=== PATIENT | male | born 1985 | race Caucasian/White ===

== ENCOUNTER 2017-01-27 19:15 | Emergency (ER) | payer OTHER ==
[~2017-01-27] VITALS: Ht 167.6 cm; Wt 68.5 kg
[2017-01-27 19:58] LABS: HEMATOCRIT 42.8 % (38.0-50.0); MCH 30.5 PG (29.0-34.0); MCHC 34.8 G/DL (30.0-36.0); MCV 87.7 FL (86-99); MEAN PLAT.VOLUME 11.3 uM^3 (9.0-12.4); PLATELET COUNT 257 K/uL (156-360); RBC DIS.WIDTH-CV 13.6 % (11.8-14.6); RED BLOOD COUNT 4.88 M/uL (4.00-5.50); WHITE BLOOD COUNT 9.2 K/uL (4.1-10.2)
[2017-01-27 20:11] LABS: ADD MIUA? NO; BILIRUBIN NEGATIVE; BLOOD NEGATIVE; COLOR YELLOW ((YELLOW)); GLUCOSE (STRIP) NEGATIVE; KETONES NEGATIVE; LEUKOCYTES NEGATIVE; NITRITE NEGATIVE; PROTEIN (STRIP) NEGATIVE; SPECIFIC GRAVITY 1.021 (1.000-1.030); UROBILINOGEN 0.2 MG/DL (0.2-1.0)
[2017-01-27 20:16] LABS: CHLORIDE 105 mEq/L (99-109); POTASSIUM 3.9 mEq/L (3.7-5.4); SODIUM 143 mEq/L (136-147)
[2017-01-27 20:18] LABS: GLUCOSE 101 mg/dL (70-99); TROP-I INTERPRETATION NEGATIVE; TROPONIN-I < 0.01 ng/mL (0.0-0.30)
[2017-01-27 20:19] LABS: ANION GAP 11 MEQ/L (2-14)
[2017-01-27 20:20] LABS: TOTAL BILIRUBIN 0.8 mg/dL (0.0-1.0)
[2017-01-27 20:21] LABS: ALKALINE PHOSPHATASE 59 IU/L (3-129)
[2017-01-27 20:22] LABS: GFR ESTIMATE (CALCULATED) > 59 mL/min/
[2017-01-27 20:23] LABS: UREA NITROGEN (BUN) 16 mg/dL (9-23)
[2017-01-27 21:05] LABS: ADD MEDTOX COMMENT Y; AMPHETAMINE NEGATIVE (500 ng/mL); BARBITURATES NEGATIVE (200 ng/mL); BENZODIAZEPINES PRESUMPTIVE POSITIVE (150 ng/mL); COCAINE NEGATIVE (150 ng/mL); INTERNAL CONTROLS VALID? YES; METHADONE NEGATIVE (200 ng/mL); METHAMPHETAMINE NEGATIVE (500 ng/mL); OPIATES (MORPHINE) NEGATIVE (100 ng/mL); OXYCODONE NEGATIVE (100 ng/mL); PHENCYCLIDINE NEGATIVE (25 ng/mL); PROPOXYPHENE NEGATIVE (300 ng/mL); THC CANNABINOIDS NEGATIVE (50 ng/mL); TRICYCLIC ANTIDEPRESSANTS NEGATIVE (300 ng/mL)
[2017-01-27 21:23] LABS: BENZODIAZEPINES, URINE SCREEN POSITIVE (200 ng/mL)
[2017-01-27] MEDS ORDERED: MOTRIN800 MG PO (21:25)
[2017-01-27 22:06] LABS: TROP-I INTERPRETATION NEGATIVE; TROPONIN-I < 0.01 ng/mL (0.0-0.30)
[2017-01-27 22:47] VITALS: BP 138/86
== END 2017-01-27 22:48 | disposition home or self-care (01) ==
LOC: EME 19:15
PROVIDERS: Nurse Practitioner Family
DX: R07.9 Chest pain, unspecified (principal)
CPT/HCPCS: 80053; 81003; 84484; 84999; 85027; 93005; 99281; 99284

== ENCOUNTER 2017-02-01 18:41 | Emergency (ER) | payer OTHER ==
[~2017-02-01] VITALS: Ht 167.6 cm; Wt 69.0 kg
[~2017-02-01 18:41] MED LIST: MOTRIN800 MG PO
[2017-02-01 19:10] LABS: HEMATOCRIT 43.2 % (38.0-50.0); MCH 30.4 PG (29.0-34.0); MCHC 34.5 G/DL (30.0-36.0); MCV 88.2 FL (86-99); MEAN PLAT.VOLUME 11.4 uM^3 (9.0-12.4); PLATELET COUNT 238 K/uL (156-360); RBC DIS.WIDTH-CV 13.5 % (11.8-14.6); RBC DIS.WIDTH-SD 43.3 % (39-53); WHITE BLOOD COUNT 9.8 K/uL (4.1-10.2)
[2017-02-01 19:22] LABS: CHLORIDE 101 mEq/L (99-109); POTASSIUM 4.2 mEq/L (3.7-5.4); SODIUM 144 mEq/L (136-147)
[2017-02-01 19:24] LABS: GLUCOSE 75 mg/dL (70-99)
[2017-02-01 19:25] LABS: ANION GAP 11 MEQ/L (2-14)
[2017-02-01 19:27] LABS: GFR ESTIMATE (CALCULATED) > 59 mL/min/
[2017-02-01 19:28] LABS: UREA NITROGEN (BUN) 15 mg/dL (9-23)
[2017-02-01 19:31] LABS: TROP-I INTERPRETATION NEGATIVE; TROPONIN-I < 0.01 ng/mL (0.0-0.30)
[2017-02-01 19:46] LABS: D-DIMER ELISA 0.22 mg/L FEU (< 0.57)
[2017-02-01 21:15] VITALS: BP 130/75
== END 2017-02-01 21:37 | disposition home or self-care (01) ==
LOC: EME 18:41
DX: R07.89 Other chest pain (principal); F41.9 Anxiety disorder, unspecified; R42 Dizziness and giddiness; R53.83 Other fatigue
CPT/HCPCS: 71020; 80048; 84484; 85027; 85379; 93005; 99281; 99284